=== PATIENT | male | born 1990 | race Caucasian/White ===

== ENCOUNTER 2023-12-15 09:54 | Emergency (ER) | payer BC, OTHER ==
[2023-12-15] MEDS: SODIUM CHLORIDE 1,000 ML IV STA (10:15)
[2023-12-15 10:16] VITALS: BP 128/79; PULSE 100; RESP 16; TEMP 99; BMI 24.4
[2023-12-15] MEDS ORDERED: FAMOTIDINE 20 MG/50 ML IVPB 20 MG/50 ML MG IVPB ONE (10:20)
[2023-12-15] MEDS ORDERED: ONDANSETRON 4 MG/2 ML VIAL ONE (10:20)
[2023-12-15] MEDS: ONDANSETRON 4 MG/2 ML VIAL IVPB ONE (10:20)
[2023-12-15] MEDS: FAMOTIDINE 20 MG/50 ML IVPB 20 MG/50 ML MG IVPB ONE (10:27)
[2023-12-15 10:43] LABS: HEMATOCRIT 45.6 % (35.4-49); MCH 29.1 pg (25.7-33.7); MCHC 32.9 g/dl (32.0-35.9); MEAN CELL VOLUME 88.2 fl (80-96); MEAN PLT VOLUME 8.6 fl (7.5-11.1); PLATELET COUNT 231.3 10^3/uL (134-434); RBC 5.17 10^6/uL (4.00-5.60); RDW 14.1 % (11.9-15.9); WHITE BLOOD COUNT 7.6 10^3/uL (4.0-10.8)
[2023-12-15 10:54] LABS: ALBUMIN 4.7 g/dl (3.4-5.0); BILIRUBIN,TOTAL 0.9 mg/dl (0.2-1); CALCIUM 9.9 mg/dl (8.5-10.1); CREATININE 0.9 mg/dl (0.6-1.3); POTASSIUM 4.2 mmol/L (3.5-5.1); TOT PROT 7.3 g/dl (6.4-8.2)
[2023-12-15 11:08] LABS: PLATELET ESTIMATE ADEQUATE
== END 2023-12-15 12:43 | disposition home or self-care (01) ==
LOC: FER 09:54
PROC: 3E033GC Introduction of Other Therapeutic Substance into Peripheral Vein, Percutaneous Approach (ICD-10-PCS; principal; 2023-12-15)
PROC: 3E033GC Introduction of Other Therapeutic Substance into Peripheral Vein, Percutaneous Approach (ICD-10-PCS; 2023-12-15)
PROC: 3E0337Z Introduction of Electrolytic and Water Balance Substance into Peripheral Vein, Percutaneous Approach (ICD-10-PCS; 2023-12-15)
DX: R11.2 Nausea with vomiting, unspecified (principal); R19.7 Diarrhea, unspecified; R10.13 Epigastric pain; R10.11 Right upper quadrant pain; A08.4 Viral intestinal infection, unspecified
CPT/HCPCS: 36415; 76705-TC; 80053; 81003; 81015; 85027; 99284-25

== ENCOUNTER 2024-02-09 08:18 | Emergency (ER) | payer BC, OTHER ==
[2024-02-09 08:42] VITALS: BP 134/94; PULSE 100; RESP 18; TEMP 99.8; BMI 26.4
[2024-02-09] MEDS: SODIUM CHLORIDE 1,000 ML IV STA (09:05)
[2024-02-09] MEDS: MAG HYDROX/AL HYDROX/SIMETH 30 ML UNIT-DOSE CUP PO ONE (09:10)
[2024-02-09] MEDS ORDERED: FAMOTIDINE 20 MG/50 ML IVPB 20 MG/50 ML MG IVPB ONE (09:14)
[2024-02-09] MEDS ORDERED: MAG HYDROX/AL HYDROX/SIMETH 30 ML UNIT-DOSE CUP ONE (09:15)
[2024-02-09] MEDS ORDERED: ACETAMINOPHEN INJECTION 100 ML IVPB ONE (09:15)
[2024-02-09 09:26] LABS: HEMATOCRIT 44.8 % (35.4-49); HEMOGLOBIN 14.7 G/dL (11.7-16.9); MCH 28.7 pg (25.7-33.7); MCHC 32.8 g/dl (32.0-35.9); MEAN CELL VOLUME 87.6 fl (80-96); MEAN PLT VOLUME 8.5 fl (7.5-11.1); PLATELET COUNT 218.9 10^3/uL (134-434); RBC 5.11 10^6/uL (4.00-5.60); RDW 14.3 % (11.9-15.9); WHITE BLOOD COUNT 4.7 10^3/uL (4.0-10.8)
[2024-02-09] MEDS: FAMOTIDINE 20 MG/50 ML IVPB 20 MG/50 ML MG IVPB ONE (09:30)
[2024-02-09] MEDS: ACETAMINOPHEN 1000 MG/100 ML BAG IVPB ONE (09:34)
[2024-02-09 09:44] LABS: ALBUMIN 4.9 g/dl (3.4-5.0); ALK PHOS 61 U/L (45-117); ANION GAP 8 mmol/L (4-13); BILIRUBIN,TOTAL 0.8 mg/dl (0.2-1); CALCIUM 10.4 mg/dl (8.5-10.1); CHLORIDE 101 mmol/L (98-107); CO2 29 mmol/L (21-32); GLUCOSE,RANDOM 96 mg/dl (74-106); MAGNESIUM 2.1 mg/dL (1.8-2.4); POTASSIUM 3.7 mmol/L (3.5-5.1); SGOT/AST 22 U/L (15-37); SGPT/ALT 16 U/L (7-52); SODIUM 138 mmol/L (136-145); TOT PROT 7.7 g/dl (6.4-8.2)
[2024-02-09 11:07] LABS: PLATELET ESTIMATE ADEQUATE
== END 2024-02-09 12:10 | disposition home or self-care (01) ==
LOC: FER 08:18
PROC: 3E033GC Introduction of Other Therapeutic Substance into Peripheral Vein, Percutaneous Approach (ICD-10-PCS; principal; 2024-02-09)
PROC: 3E033NZ Introduction of Analgesics, Hypnotics, Sedatives into Peripheral Vein, Percutaneous Approach (ICD-10-PCS; 2024-02-09)
DX: R10.11 Right upper quadrant pain (principal); R19.7 Diarrhea, unspecified; R11.0 Nausea; Z20.822 Contact with and (suspected) exposure to COVID-19
CPT/HCPCS: 0241U-QW; 36415; 74177-TC; 80053; 83690; 83735; 84439; 84443; 85027; 99285-25; J0131; Q9967